=== PATIENT | female | born 2000 | race Caucasian/White ===

== ENCOUNTER 2020-09-18 18:33 | Emergency (ER) | payer MEDICARE, MEDICAID ==
[~2020-09-18] VITALS: Ht 149.9 cm; Wt 61.7 kg
[2020-09-18] MEDS ORDERED: ONDANSETRON 4 MG ORAL DISINTEGRATING TAB PO ONE (21:55)
[2020-09-18 22:29] LABS: BASO % 0.4 % (0.0-1.0); EOS # 0.1 10^3/uL (0.0-0.5); EOS % 1.2 % (0.0-3.0); HEMATOCRIT 38.9 % (36.0-47.0); HEMOGLOBIN 13.5 g/dl (12.0-15.5); LYMPH # 2.1 10^3/uL (1.5-5.0); LYMPH % 21.5 % (24.0-44.0); MEAN CORPUSCULAR HGB CONC 34.7 g/dl (32.0-36.5); MEAN CORPUSCULAR VOLUME 83.7 fl (80.0-96.0); MONO # 0.6 10^3/uL (0.0-0.8); MONO % 6.2 % (2.0-8.0); NEUTROPHILS # 6.9 10^3/uL (1.5-8.5); NEUTROPHILS % 70.5 % (36.0-66.0); PLATELET COUNT, AUTOMATED 271 10^3/uL (150-450); RED BLOOD COUNT 4.65 10^6/uL (4.00-5.40); WHITE BLOOD COUNT 9.9 10^3/uL (4.0-10.0)
[2020-09-18 23:57] LABS: ALT/SGPT 16 U/L (12-78); BILIRUBIN,DIRECT < 0.1 MG/DL (0.0-0.2); BILIRUBIN,TOTAL 0.4 MG/DL (0.2-1.0); HCG, SERUM QUANTITATIVE 29868 MIU/ML; LIPASE 122 U/L (73-393)
[2020-09-19] MEDS ORDERED: MACR100C43 PO (00:28)
[2020-09-19] MEDS ORDERED: NITROFURANTOIN (MACROBID) 100 MG CAP PO ONE (00:30)
[2020-09-19 00:56] VITALS: BP 153/62
== END 2020-09-19 00:59 | disposition home or self-care (01) ==
LOC: M ED 22:21
DX: O23.11 Infections of bladder in pregnancy, first trimester (principal); O99.331 Smoking (tobacco) complicating pregnancy, first trimester
CPT/HCPCS: 80076; 81001; 83690; 84702; 85025; 87086; 99284; Q0162

== ENCOUNTER 2024-04-27 13:29 | Emergency (ER) | payer MEDICAID, MEDICARE ==
[~2024-04-27] VITALS: Ht 160 cm; Wt 69.1 kg
[~2024-04-27 13:29] MED LIST: MACR100C43 PO
[2024-04-27 13:33] VITALS: BP 120/65; TEMP 98.2; O2SAT 99
[2024-04-27] MEDS ORDERED: MULTTAB20 PO (14:04)
== END 2024-04-27 14:05 | disposition admitted as inpatient to this hospital (09) ==
LOC: M ED 13:29
DX: Z53.21 Procedure and treatment not carried out due to patient leaving prior to being seen by health care provider (principal)

== ENCOUNTER 2024-04-27 13:43 | Outpatient (CLI) | payer MEDICARE, MEDICAID ==
[~2024-04-27] VITALS: Ht 149.9 cm; Wt 69.0 kg
[2024-04-27] MEDS ORDERED: MULTTAB20 PO (14:04)
[2024-04-27] MEDS ORDERED: HOME MED LIST COMPLETE! XX SCH (14:05)
[2024-04-27 14:08] VITALS: BP 123/63
[2024-04-27 14:41] LABS: KETONE, URINE AUTO RFX NEGATIVE (NEGATIVE); LEUKOCYTE ESTERASE UR AUTO RFX NEGATIVE (NEGATIVE); MUCUS, URINE RFX SMALL (NEGATIVE); NITRITE, URINE AUTO RFX NEGATIVE (NEGATIVE); RBC, URINE AUTO RFX 0 /HPF (0-3); SQUAM EPITHELIAL CELL UR AURFX 1 /HPF (0-6); WBC, URINE AUTO RFX 0 /HPF (0-3)
[2024-04-27 16:15] LABS: GC DNA AMPLIFICATION NEGATIVE (NEGATIVE)
== END 2024-04-27 16:30 | disposition home or self-care (01) ==
LOC: M LDO 13:43
PROVIDERS: ATTEND Obstetrics & Gynecology
DX: O26.893 Other specified pregnancy related conditions, third trimester (principal); R25.2 Cramp and spasm; R10.2 Pelvic and perineal pain; Z11.3 Encounter for screening for infections with a predominantly sexual mode of transmission; Z3A.28 28 weeks gestation of pregnancy
CPT/HCPCS: 59025; 81001; 87810; 87850; G0463